=== PATIENT | female | born 1950 | race Caucasian/White ===

== ENCOUNTER → 2020-02-22 | Outpatient (CLI) | payer BC, MEDICARE | LOC: EDSEX 18:18 → LAB SHORT 18:18 → LAB 18:18 | DX: Z13.0 Encounter for screening for diseases of the blood and blood-forming organs and certain disorders involving the immune mechanism (principal); Z13.21 Encounter for screening for nutritional disorder; Z13.29 Encounter for screening for other suspected endocrine disorder; Z13.228 Encounter for screening for other metabolic disorders; E11.621 Type 2 diabetes mellitus with foot ulcer; L97.529 Non-pressure chronic ulcer of other part of left foot with unspecified severity; E11.22 Type 2 diabetes mellitus with diabetic chronic kidney disease; I15.1 Hypertension secondary to other renal disorders; N18.9 Chronic kidney disease, unspecified; E55.9 Vitamin D deficiency, unspecified; I15.9 Secondary hypertension, unspecified; E78.5 Hyperlipidemia, unspecified; K51.90 Ulcerative colitis, unspecified, without complications; E66.9 Obesity, unspecified | CPT/HCPCS: 87070; 87075; 87077; 87147; 87186; 87205 ==

== ENCOUNTER 2022-06-14 00:11 | Day surgery (SDC) | payer BC, MEDICARE | END 2022-06-14 22:47 | disposition home or self-care (01) | LOC: WOUND 00:11 | DX: E11.621 Type 2 diabetes mellitus with foot ulcer (principal); I10 Essential (primary) hypertension; L97.502 Non-pressure chronic ulcer of other part of unspecified foot with fat layer exposed | CPT/HCPCS: A9270 ==

== ENCOUNTER 2022-06-18 09:32 | Emergency (ER) | payer BC, MEDICARE ==
[~2022-06-18] VITALS: Ht 154.9 cm; Wt 88.5 kg
[2022-06-18] MEDS ORDERED: LEVE500 PO (12:19)
[2022-06-18] MEDS ORDERED: Vitamin B-150 MG PO (12:20)
[2022-06-18] MEDS ORDERED: ALBU90OI (12:20)
[2022-06-18] MEDS ORDERED: ATOR10 PO (12:20)
[2022-06-18] MEDS ORDERED: GABA300 PO (12:21)
[2022-06-18] MEDS ORDERED: FOLI1 PO (12:21)
[2022-06-18] MEDS ORDERED: PANT40 (12:22)
[2022-06-18] MEDS ORDERED: Purinethol50 MG (12:22)
[2022-06-18] MEDS ORDERED: MESA250ER (12:22)
[2022-06-18] MEDS ORDERED: GLIP5 PO (12:22)
[2022-06-18] MEDS ORDERED: SITA50T2 PO (12:23)
[2022-06-18 13:18] LABS: BASOPHILS ABSOLUTE AUTO 0.04 K/mm3 (0.00-0.23); BASOPHILS PERCENT AUTO 1 % (0-2); EOSINOPHILS ABSOLUTE AUTO 0.15 K/mm3 (0.00-0.68); EOSINOPHILS PERCENT AUTO 2 % (0-6); Hematocrit 31.6 % (33.0-51.0); Hemoglobin 10.5 g/dL (11.5-16.0); IMMATURE GRAN ABSOLUTE AUTO 0.21 K/mm3 (0.00-0.10); IMMATURE GRAN PERCENT AUTO 3 % (0-1); LYMPHOCYTES ABSOLUTE AUTO 0.94 K/mm3 (0.84-5.20); LYMPHOCYTES PERCENT AUTO 12 % (21-46); MONOCYTES ABSOLUTE AUTO 0.56 K/mm3 (0.16-1.47); MONOCYTES PERCENT AUTO 7 % (4-13); Mean Corpuscular HGB 31.2 pg (26.0-34.0); Mean Corpuscular HGB Conc 33.2 g/dL (31.5-36.5); Mean Corpuscular Volume 94 fL (80-100); Mean Platelet Volume 10.2 fL (9.1-12.4); NEUTROPHILS PERCENT AUTO 76 % (41-73); Platelet Count 380 K/mm3 (150-400); RDW Coefficient Variation 15.2 % (11.7-14.2); RDW Standard Deviation 52.3 fL (35.1-46.3); Red Blood Cell Count 3.37 M/mm3 (3.80-5.20)
[2022-06-18 13:40] LABS: Bun/Creatinine Ratio 27.9 (12.0-20.0); Calcium, Blood 9.6 mg/dL (8.5-10.1); Creatinine, Blood 2.04 mg/dL (0.40-1.00); Potassium, Blood 4.4 mmol/L (3.5-5.5)
== END 2022-06-18 15:46 | disposition home or self-care (01) ==
LOC: ER 09:32
PROVIDERS: Emergency Medicine
DX: S43.004A Unspecified dislocation of right shoulder joint, initial encounter (principal); W19.XXXA Unspecified fall, initial encounter; I10 Essential (primary) hypertension; E11.9 Type 2 diabetes mellitus without complications; I95.9 Hypotension, unspecified; Z79.899 Other long term (current) drug therapy
CPT/HCPCS: 80048; 85025; J7030

== ENCOUNTER 2022-06-24 01:17 | Day surgery (SDC) | payer BC, MEDICARE ==
[~2022-06-24 01:17] MED LIST: ALBU90OI; ATOR10 PO; FOLI1 PO; GABA300 PO; GLIP5 PO; LEVE500 PO; MESA250ER; PANT40; Purinethol50 MG; SITA50T2 PO; Vitamin B-150 MG PO
== END 2022-06-24 23:27 | disposition home or self-care (01) ==
DX: E11.621 Type 2 diabetes mellitus with foot ulcer (principal); L97.522 Non-pressure chronic ulcer of other part of left foot with fat layer exposed; L97.512 Non-pressure chronic ulcer of other part of right foot with fat layer exposed; Z89.422 Acquired absence of other left toe(s); I10 Essential (primary) hypertension; E11.51 Type 2 diabetes mellitus with diabetic peripheral angiopathy without gangrene

== ENCOUNTER 2022-07-01 01:16 | Day surgery (SDC) | payer BC, MEDICARE | END 2022-07-01 22:43 | disposition home or self-care (01) | LOC: WOUND 01:16 | DX: E11.621 Type 2 diabetes mellitus with foot ulcer (principal); L97.522 Non-pressure chronic ulcer of other part of left foot with fat layer exposed; L97.516 Non-pressure chronic ulcer of other part of right foot with bone involvement without evidence of necrosis; I10 Essential (primary) hypertension; E11.51 Type 2 diabetes mellitus with diabetic peripheral angiopathy without gangrene | CPT/HCPCS: A9270 ==

== ENCOUNTER 2022-07-08 01:45 | Day surgery (SDC) | payer BC, MEDICARE | END 2022-07-08 23:00 | disposition home or self-care (01) | LOC: WOUND 01:45 | DX: E11.621 Type 2 diabetes mellitus with foot ulcer (principal); L97.522 Non-pressure chronic ulcer of other part of left foot with fat layer exposed; L97.512 Non-pressure chronic ulcer of other part of right foot with fat layer exposed; E11.51 Type 2 diabetes mellitus with diabetic peripheral angiopathy without gangrene; I10 Essential (primary) hypertension; Z89.422 Acquired absence of other left toe(s) | CPT/HCPCS: A9270; G0463 ==

== ENCOUNTER 2022-07-15 01:24 | Day surgery (SDC) | payer BC, MEDICARE | END 2022-07-15 22:45 | disposition home or self-care (01) | LOC: WOUND 01:24 | DX: E11.621 Type 2 diabetes mellitus with foot ulcer (principal); L97.522 Non-pressure chronic ulcer of other part of left foot with fat layer exposed; L97.512 Non-pressure chronic ulcer of other part of right foot with fat layer exposed; I10 Essential (primary) hypertension; E11.51 Type 2 diabetes mellitus with diabetic peripheral angiopathy without gangrene | CPT/HCPCS: G0463 ==

== ENCOUNTER 2022-07-26 09:58 | Day surgery (SDC) | payer BC, MEDICARE | END 2022-07-26 23:28 | disposition home or self-care (01) | LOC: WOUND 09:58 | DX: E11.621 Type 2 diabetes mellitus with foot ulcer (principal); I10 Essential (primary) hypertension; I73.9 Peripheral vascular disease, unspecified | CPT/HCPCS: G0463 ==